=== PATIENT | female | born 1990 | race Caucasian/White ===

== ENCOUNTER 2024-07-17 15:28 | Outpatient (CLI) | payer MEDICAID ==
--- NOTE | 2024-07-18 09:17 | RADIOLOGY REPORT ---
CLINICAL INDICATION: PAIN IN LEFT HIP COMPARISON: None TECHNIQUE: Multiplanar, multi-sequence MRI of the left hip was performed without intravenous contrast. The contralateral hip is included some of the sequences. Contrast: None INTERPRETATION: Joint space: There is no effusion. Bones and articular cartilage: There is no fracture, bone marrow edema or avascular necrosis. The al ignment is normal. There is no focal articular cartilage defect. Tendons, muscles and bursae: The muscles are normal in bulk and signal characteristics. There is no tendon abnormality. There is no evidence of bursitis. Acetabular labrum: No labral tear is identified. IMPRESSION: 1. No acute bone or soft tissue injury in the left hip. No significant degenerative changes in the l eft hip.
== END 2024-07-17 23:59 | disposition home or self-care (01) ==
LOC: MRI02 15:28
PROVIDERS: ATTEND Physician Assistant Surgical
DX: M25.552 Pain in left hip (principal); M70.62 Trochanteric bursitis, left hip
CPT/HCPCS: 73721